=== PATIENT | male | born 1950 | race African-American/Black ===

== ENCOUNTER 2019-11-06 05:22 | Emergency (ER) | payer OTHER ==
[~2019-11-06] VITALS: Ht 182.9 cm; Wt 87.1 kg
[2019-11-06] MEDS ORDERED: LIDODERM1 EACH TOP (06:00)
[2019-11-06 06:20] VITALS: BP 134/72
== END 2019-11-06 06:25 | disposition home or self-care (01) ==
LOC: ER 05:22
DX: S20.211A Contusion of right front wall of thorax, initial encounter (principal); W00.0XXA Fall on same level due to ice and snow, initial encounter; Y92.89 Other specified places as the place of occurrence of the external cause; Y93.89 Activity, other specified; Y99.8 Other external cause status